=== PATIENT | male | born 1945 | race African-American/Black ===

== ENCOUNTER 2024-06-01 13:14 | Inpatient (IN) | payer OTHER ==
[2024-06-01 16:17] LABS: EPI CELLS 1 /uL (0-25.1); HYALINE CASTS 0 /uL (0-3.1); PH,URINE 5.5 (5.0-8.0); URINE APPEARANCE CLOUDY; URINE BACTERIA 5526 /uL (0-1359); URINE BILIRUBIN NEGATIVE (NEGATIVE); URINE COLOR YELLOW; URINE GLUCOSE (UA) NEGATIVE (NEGATIVE); URINE KETONE NEGATIVE (NEGATIVE); URINE LEUK ESTERASE 3+ (NEGATIVE); URINE NITRITE NEGATIVE (NEGATIVE); URINE PROTEIN 1+ (NEGATIVE); URINE RBC 374 /uL (0-23.9); URINE UROBILINOGEN 0.2 mg/dL (0.2-1.0); URINE WBC 1962 /uL (0-25.8)
[2024-06-01 16:19] LABS: BASO % 0.4 % (0-2.0); HEMATOCRIT 46.1 % (35.4-49); HEMOGLOBIN 15.1 GM/dL (11.7-16.9); LYMPH % 5.2 % (8-40); MCH 29.5 pg (25.7-33.7); MCHC 32.8 g/dl (32.0-35.9); MEAN CELL VOLUME 90.1 fl (80-96); MEAN PLT VOLUME 8.1 fl (7.5-11.1); MONO % 4.4 % (3.8-10.2); PLATELET COUNT 210 10^3/uL (134-434); RBC 5.12 M/mm3 (4.00-5.60); RDW 13.8 % (11.9-15.9); WHITE BLOOD COUNT 10.2 K/mm3 (4.0-10.0)
[2024-06-01 17:05] LABS: POTASSIUM 3.8 mmol/L (3.5-5.1)
[2024-06-01 17:06] LABS: CALCIUM 10.2 mg/dL (8.5-10.1)
[2024-06-01 17:07] LABS: ALBUMIN 4.6 g/dl (3.4-5.0)
[2024-06-01 17:10] LABS: CREATININE 1.1 mg/dL (0.55-1.3)
[2024-06-01 17:12] LABS: BILIRUBIN,TOTAL 1.2 mg/dL (0.2-1); TOT PROT 8.2 g/dl (6.4-8.2)
[2024-06-01] MEDS ORDERED: CEFTRIAXONE 1 GM/50 ML BAG ONE (17:13)
[2024-06-01] MEDS: CEFTRIAXONE 1,000 MG in DEXTROSE 5%-WATER - 50 ML IVPB ONE (17:16)
[2024-06-01] MEDS ORDERED: ACETAMINOPHEN INJECTION 100 ML ONE (17:46)
[2024-06-01] MEDS: ACETAMINOPHEN 1000 MG/100 ML BAG IVPB ONE (17:54)
[2024-06-01] MEDS ORDERED: KETOROLAC TROMETHAMINE 15 MG/ML VIAL ONE (21:03)
[2024-06-01] MEDS: KETOROLAC TROMETHAMINE 15 MG/ML VIAL IVPUSH ONE (21:14)
[2024-06-02] MEDS: METOPROLOL TARTRATE 50 MG TABLET (FP) PO SCH (02:00)
[2024-06-02] MEDS ORDERED: ACETAMINOPHEN 500 MG TABLET (FP) PO PRN (04:04)
[2024-06-02] MEDS: NIFEdipine E.R. 90 MG TABLET PO SCH (09:29)
[2024-06-02] MEDS: CEFTRIAXONE 1 G/50 ML PREMIX 50 ML IVPB SCH (09:29)
[2024-06-02 09:59] LABS: HEMATOCRIT 44.4 % (35.4-49); HEMOGLOBIN 14.6 GM/dL (11.7-16.9); MCH 29.4 pg (25.7-33.7); MCHC 32.9 g/dl (32.0-35.9); MEAN CELL VOLUME 89.4 fl (80-96); MEAN PLT VOLUME 7.7 fl (7.5-11.1); PLATELET COUNT 160 10^3/uL (134-434); RBC 4.96 M/mm3 (4.00-5.60); RDW 13.5 % (11.9-15.9); WHITE BLOOD COUNT 29.1 K/mm3 (4.0-10.0)
[2024-06-02 10:27] LABS: POTASSIUM 3.6 mmol/L (3.5-5.1)
[2024-06-02 10:32] LABS: BLOOD UREA NITROGEN 25.8 mg/dL (7-18)
[2024-06-02 10:34] LABS: CALCIUM 9.5 mg/dL (8.5-10.1); MAGNESIUM 1.7 mg/dL (1.8-2.4)
[2024-06-02 10:40] LABS: BILIRUBIN,TOTAL 1.3 mg/dL (0.2-1)
[2024-06-02 10:42] LABS: TOT PROT 7.5 g/dl (6.4-8.2)
[2024-06-02] MEDS: RAMIPRIL 5 MG CAPSULE PO SCH (11:41)
[2024-06-02] MEDS: SODIUM CHLORIDE 1,000 ML IV STA ×2 (12:44→14:51)
[2024-06-02] MEDS: SODIUM CHLORIDE 1,000 ML IV SCH ×3 (14:34→23:00)
[2024-06-02] MEDS: PIPERACILLIN/TAZOB 2.25 GM 2.25 GM in DEXTROSE 5%-WATER - 50 ML IVPB SCH (14:51)
[2024-06-02] MEDS: MAGNESIUM 2GM/50ML STERILE WATER IVPB IVPB ONE (16:14)
[2024-06-02] MEDS ORDERED: PIPERACILLIN/TAZOB 2.25 GM 2.25 GM/50 ML BAG IVPB SCH (22:00)
[2024-06-03] MEDS: PIPERACILLIN/TAZOB 2.25 GM 2.25 GM/50 ML BAG IVPB SCH (03:41)
[2024-06-03] MEDS ORDERED: ACETAMINOPHEN 500 MG TABLET (FP) PO PRN (07:06)
[2024-06-03 07:36] LABS: HEMATOCRIT 39.2 % (35.4-49); MCH 29.4 pg (25.7-33.7); MCHC 33.2 g/dl (32.0-35.9); MEAN CELL VOLUME 88.5 fl (80-96); MEAN PLT VOLUME 7.6 fl (7.5-11.1); PLATELET COUNT 120 10^3/uL (134-434); RBC 4.43 M/mm3 (4.00-5.60); RDW 13.4 % (11.9-15.9); WHITE BLOOD COUNT 19.8 K/mm3 (4.0-10.0)
[2024-06-03 08:09] LABS: POTASSIUM 3.2 mmol/L (3.5-5.1)
[2024-06-03 08:12] LABS: CALCIUM 8.1 mg/dL (8.5-10.1)
[2024-06-03 08:13] LABS: BLOOD UREA NITROGEN 25.7 mg/dL (7-18)
[2024-06-03 08:16] LABS: CREATININE 1.4 mg/dL (0.55-1.3)
[2024-06-03 08:17] LABS: BILIRUBIN,TOTAL 1.5 mg/dL (0.2-1); TOT PROT 5.8 g/dl (6.4-8.2)
[2024-06-03] MEDS: SODIUM CHLORIDE 1,000 ML IV SCH (08:19)
[2024-06-03] MEDS: PIPERACILLIN/TAZOB 2.25 GM 2.25 GM in DEXTROSE 5%-WATER - 50 ML IVPB SCH ×2 (08:20→15:37)
[2024-06-03] MEDS: POTASSIUM CHLORIDE ORAL LIQUID 20 MEQ/15 ML PO ONE (09:54)
[2024-06-03 15:12] VITALS: BMI 16.6
[2024-06-03] MEDS: PIPERACILLIN/TAZOB 3.375 GM 50 ML IVPB SCH (17:23)
[2024-06-03] MEDS: METOPROLOL TARTRATE 50 MG TABLET (FP) PO SCH (17:24)
[2024-06-04 06:57] LABS: CALCIUM 8.3 mg/dL (8.5-10.1)
[2024-06-04 06:59] LABS: ALBUMIN 3.1 g/dl (3.4-5.0); BLOOD UREA NITROGEN 21.8 mg/dL (7-18); MAGNESIUM 1.8 mg/dL (1.8-2.4)
[2024-06-04 07:00] LABS: BASO % 0.3 % (0-2.0); EOS % 0.4 % (0-4.5); HEMATOCRIT 38.8 % (35.4-49); HEMOGLOBIN 13.2 GM/dL (11.7-16.9); LYMPH % 10.5 % (8-40); MCH 30.1 pg (25.7-33.7); MEAN CELL VOLUME 88.4 fl (80-96); MEAN PLT VOLUME 7.7 fl (7.5-11.1); MONO % 6.8 % (3.8-10.2); PLATELET COUNT 139 10^3/uL (134-434); RBC 4.39 M/mm3 (4.00-5.60); WHITE BLOOD COUNT 13.8 K/mm3 (4.0-10.0)
[2024-06-04 07:02] LABS: BILIRUBIN,TOTAL 1.3 mg/dL (0.2-1); CREATININE 1.4 mg/dL (0.55-1.3)
[2024-06-04] MEDS: NIFEdipine E.R. 90 MG TABLET PO SCH (09:41)
[2024-06-04] MEDS ORDERED: RAMIPRIL 5 MG CAPSULE PO SCH (10:00)
[2024-06-04] MEDS: SODIUM CHLORIDE 0.45% 1,000 ML IV SCH ×2 (13:24→22:50)
[2024-06-04] MEDS: METOPROLOL TARTRATE 50 MG TABLET (FP) PO SCH (21:16)
[2024-06-05] MEDS ORDERED: PIPERACILLIN/TAZOB 3.375 GM 50 ML IVPB SCH (02:00)
[2024-06-05] MEDS: PIPERACILLIN/TAZOB 3.375 GM 50 ML IVPB SCH (02:45)
[2024-06-05] MEDS ORDERED: TAMSULOSIN HCL 0.4 MG CAP PO SCH (08:30)
[2024-06-05 08:37] LABS: HEMATOCRIT 41.4 % (35.4-49); HEMOGLOBIN 14.3 GM/dL (11.7-16.9); MCH 30.4 pg (25.7-33.7); MCHC 34.6 g/dl (32.0-35.9); MEAN CELL VOLUME 87.9 fl (80-96); MEAN PLT VOLUME 7.6 fl (7.5-11.1); PLATELET COUNT 160 10^3/uL (134-434); RBC 4.71 M/mm3 (4.00-5.60); RDW 13.6 % (11.9-15.9); WHITE BLOOD COUNT 9.7 K/mm3 (4.0-10.0)
[2024-06-05 08:56] LABS: POTASSIUM 3.3 mmol/L (3.5-5.1)
[2024-06-05 08:59] LABS: ALBUMIN 3.2 g/dl (3.4-5.0); BLOOD UREA NITROGEN 11.1 mg/dL (7-18); CALCIUM 8.9 mg/dL (8.5-10.1); MAGNESIUM 1.5 mg/dL (1.8-2.4)
[2024-06-05 09:04] LABS: BILIRUBIN,TOTAL 1.2 mg/dL (0.2-1); PHOSPHOROUS 2.6 mg/dL (2.5-4.9); TOT PROT 6.5 g/dl (6.4-8.2)
[2024-06-05] MEDS: TAMSULOSIN HCL 0.4 MG CAP PO SCH (10:00)
[2024-06-05] MEDS: NIFEdipine E.R. 90 MG TABLET PO SCH (10:00)
[2024-06-05] MEDS: ACETAMINOPHEN 500 MG TABLET (FP) PO PRN (13:38)
[2024-06-05] MEDS: SODIUM CHLORIDE 0.45% 1,000 ML IV SCH (14:47)
[2024-06-05] MEDS: POTASSIUM CHLORIDE ORAL LIQUID 20 MEQ/15 ML PO ONE (14:47)
[2024-06-06 10:21] VITALS: BP 153/61; PULSE 96; RESP 15; TEMP 98.2
== END 2024-06-06 14:00 | disposition home or self-care (01) | DRG 690 ==
LOC: JER 13:14 → JERBED 21:09 → J7W 06-02 03:06 → J2W 06-02 20:36 → J7W 06-04 20:49
PROVIDERS: ADMIT Internal Medicine; ATTEND Nurse Practitioner Family
DX: N39.0 Urinary tract infection, site not specified (principal); N17.9 Acute kidney failure, unspecified; Z68.1 Body mass index [BMI] 19.9 or less, adult; N32.89 Other specified disorders of bladder; R63.4 Abnormal weight loss; D69.6 Thrombocytopenia, unspecified; R30.0 Dysuria; J98.4 Other disorders of lung; N43.3 Hydrocele, unspecified; N40.1 Benign prostatic hyperplasia with lower urinary tract symptoms; B96.20 Unspecified Escherichia coli [E. coli] as the cause of diseases classified elsewhere; R31.0 Gross hematuria; R33.9 Retention of urine, unspecified
CPT/HCPCS: 0241U-QW; 36415; 74176-TC; 76775-TC; 76870-TC; 80053; 81003; 83735; 83970; 84100; 84153; 85025; 85027; 87040; 87086; 87186; 87481; 93005; 93010; 97116-GP; 97161-GP; 99285-25; J0131